=== PATIENT | male | born 1995 | race American Indian/Alaskan Native ===

== ENCOUNTER 2018-11-03 16:00 | Emergency (ER) | payer OTHER ==
--- NOTE | 2018-11-03 16:05 | Event Note ---
ED Screening Note Date of service: 11/03/18 Time: 16:02 ED Screening Note: 23 y o male presenst with left hend smash injury into door lac to 3rd and 4th digit This initial assessment/diagnostic orders/clinical plan/treatment(s) is/are subject to change based on patients health status, clinical progression and re- assessment by fellow clinical providers in the ED. Further treatment and workup at subsequent clinical providers discretion. Patient/guardian urged not to elope from the ED as their condition may be serious if not clinically assessed and managed. Initial orders include: xr fingers
--- NOTE | 2018-11-03 16:36 | XRay Report ---
LEFT HAND 4 VIEW INDICATION / CLINICAL INFORMATION: pain. COMPARISON: None available. FINDINGS: Comminuted fractures of the distal phalanges of the middle and ring fingers. Signer Name: Eddie Perez MD Signed: 11/03/2018 4:31 PM Workstation Name: [id number]
[2018-11-03] MEDS ORDERED: BOOSTRIX IM ONE (16:49)
[2018-11-03] MEDS ORDERED: PERCOCET 5/325 PO ONE (16:49)
[2018-11-03] MEDS ORDERED: XYLOCAINE 1% MPF 5 mL INFILTRATI ONE (16:57)
[2018-11-03] MEDS ORDERED: MARCAINE 0.25% INFILTRATI ONE ×2 (16:57→18:00)
--- NOTE | 2018-11-03 18:42 | Emergency Department Report ---
ED General Adult HPI - General Chief complaint: Extremity Injury, Upper Stated complaint: LFT FINGER TRAUMA/PAIN Time Seen by Provider: 11/03/18 16:02 Source: patient Mode of arrival: Ambulatory Limitations: No Limitations - History of Present Illness Initial comments: Patient is a 23-year-old male presents to the emergency room after slamming his left middle and ring finger and the door that occurred approximately 1-1/2 hours prior to arrival. Patient states he slammed a heavy wooden door. He is unsure of his last tetanus immunization. Patient also has lacerations present to the left middle and ring finger. He denies any previous injury of the fingers. he denies any numbness or weakness. the patient denies any PMHx or allergies to meds. Severity scale (0 -10): 10 - Related Data Previous Rx's Medication Instructions Recorded Last Taken Type Acetaminophen/Codeine [Tylenol 1 tab PO Q6H PRN #12 tab 11/03/18 Unknown Rx /Codeine # 3 tab] Ibuprofen [Motrin 600 MG tab] 600 mg PO Q8H PRN #14 tablet 11/03/18 Unknown Rx cephALEXin [Keflex] 500 mg PO QID 7 Days #56 capsule 11/03/18 Unknown Rx Allergies Allergy/AdvReac Type Severity Reaction Status Date / Time No Known Allergies Allergy Unverified 11/03/18 16:03 ED Review of Systems ROS: Stated complaint: LFT FINGER TRAUMA/PAIN Other details as noted in HPI Comment: All other systems reviewed and negative ED Past Medical Hx - Past Medical History Previous Medical History?: No - Surgical History Past Surgical History?: Yes Additional Surgical History: ACL repair - Social History Smoking Status: Never Smoker - Medications Home Medications: Home Medications Medication Instructions Recorded Confirmed Last Taken Type Acetaminophen/Codeine [Tylenol 1 tab PO Q6H PRN #12 tab 11/03/18 Unknown Rx /Codeine # 3 tab] Ibuprofen [Motrin 600 MG tab] 600 mg PO Q8H PRN #14 tablet 11/03/18 Unknown Rx cephALEXin [Keflex] 500 mg PO QID 7 Days #56 capsule 11/03/18 Unknown Rx ED Physical Exam - General Limitations: No Limitations General appearance: alert, in no apparent distress - Head Head exam: Present: atraumatic, normocephalic - Eye Eye exam: Present: normal appearance - ENT ENT exam: Present: mucous membranes moist - Neurological Exam Neurological exam: Present: alert, oriented X3 - Psychiatric Psychiatric exam: Present: normal affect, normal mood - Skin Skin exam: Present: warm, dry, other (2 cm laceration to the palmar surface of the left ring finger, appears superficial, no tendon invovlement, avulsion present to the left middle finger adjacent to the nail bed, left middle finger nail avulsion and is partially from the nail bed, small puncture wound to the left ring finger on the palmar side ) ED Course Vital Signs 11/03/18 11/03/18 11/03/18 16:03 17:23 19:33 Temperature 98.5 F Pulse Rate 79 80 Respiratory 16 17 16 Rate Blood Pressure 139/82 Blood Pressure 140/84 [Right] O2 Sat by Pulse 98 99 Oximetry - Laceration /Wound Repair Left Finger Wound Location: upper extremity (left palmar surface of the ring finger, and the left middle finger nail) Wound Length (cm): 2 Wound's Depth, Shape: superficial, nail-avulsed Wound Explored: clean Irrigated w/ Saline (ccs): 30 Betadine Prep?: Yes Anesthesia: 1% Lidocaine (50/50 mixture of 1% lidocaine without epi and 0.25% of bupivacaine) Volume Anesthetic (ccs): 4 Wound Repaired With: sutures Suture Size/Type: 4:0, proline Number of Sutures: 4 Layer Closure?: No Sterile Dressing Applied?: Yes Progress: area irrigated with saline/betadine mixture then prepped with betadine, no foreign body visualized, no tendon involvement, sterile dressing applied, 50/50 mixture of 1% lidocaine without epi and 0.25 % bupivacaine, digital block performed to the left middle finger and left ring finger with 2 cc of anesthetic mixture, 2 cm laceration present to the palmar surface of the left ring finger repaired with 3 sutures of 4-0 prolene, nail avulsion to the left middle finger, small hole placed with electrocautery and nail placed back in the nail bed and one suture placed to hold in place with 4-0 prolene, skin avulsion unable to be repaired due to the edges being too far apart and would not hold suture, pt received 4 total sutures, pt tolerated well, bleeding controlled, no complications ED Medical Decision Making - Radiology Data Radiology results: report reviewed LEFT HAND 4 VIEW INDICATION / CLINICAL INFORMATION: pain. COMPARISON: None available. FINDINGS: Comminuted fractures of the distal phalanges of the middle and ring fingers. Signer Name: Eddie Perez MD Signed: 11/03/2018 4:31 PM Workstation Name: [id number] Transcribed By: TM Dictated By: Eddie Perez MD Electronically Authenticated By: Eddie Perez MD Signed Date/Time: 11/03/18 5131 - Medical Decision Making Patient is a 23-year-old male presents to the emergency room after slamming his left middle and ring finger and the door that occurred approximately 1-1/2 hours prior to arrival. Patient states he slammed a heavy wooden door. He is unsure of his last tetanus immunization. Patient also has lacerations present to the left middle and ring finger. He denies any previous injury of the fingers. he denies any numbness or weakness. the patient denies any PMHx or allergies to meds. VSS. on exam: 2 cm laceration to the palmar surface of the left ring finger, appears superficial, no tendon invovlement, avulsion present to the left middle finger adjacent to the nail bed, left middle finger nail avulsion and is partially from the nail bed, small puncture wound to the left ring finger on the palmar side. XR left hand shows: Comminuted fractures of the distal phalanges of the middle and ring fingers. all wounds thoroughly irrigated with saline and betadine. pt given tetanus immunization. digital block performed on the left ring finger and middle finger, laceration repaired on the left ring finger due to being superficial, nail avulsion placed back in nail bed and sutured to the finger skin, unable to repair avulsion, puncture wound could represent open fracture. repairs per procedure note. pt placed on abx due to potential for open fx. pt fingers ulises taped and sterile dressing applied. advised pt to please take medication as prescribed. do not drive or operate heavy machinery while taking pain medication. Please keep areas clean and dry. No hot tub, pool, soaking in water. sutures will need to be removed in 7-10 days, may return to the emergency room or be seen by urgent care/primary care. Follow up with an orthopedic doctor in the next 2 days due to finger fractures. Return to the emergency room for any new or worsening symptoms. Critical care attestation.: If time is entered above; I have spent that time in minutes in the direct care of this critically ill patient, excluding procedure time. ED Disposition Clinical Impression: Fracture of distal phalanx of finger of left hand, Laceration, Skin avulsion, Nail avulsion Disposition: - TO HOME OR SELFCARE Is pt being admited?: No Does the pt Need Aspirin: No Condition: Stable Instructions: Suture Care (ED), Laceration (ED), Finger Fracture (ED) Additional Instructions: Please take medication as prescribed. do not drive or operate heavy machinery while taking pain medication. Please keep areas clean and dry. No hot tub, pool, soaking in water. sutures will need to be removed in 7-10 days, may return to the emergency room or be seen by urgent care/primary care. Follow up with an orthopedic doctor in the next 2 days due to finger fractures. Return to the emergency room for any new or worsening symptoms. Prescriptions: cephALEXin [Keflex] 500 mg PO QID 7 Days #56 capsule Ibuprofen [Motrin 600 MG tab] 600 mg PO Q8H PRN #14 tablet PRN Reason: Pain Acetaminophen/Codeine [Tylenol /Codeine # 3 tab] 1 tab PO Q6H PRN #12 tab PRN Reason: Pain , Severe (7-10) Referrals: [facility] [Provider Group] - 2-3 Days CIRO GREWAL MD [Staff Physician] - 2-3 Days Time of Disposition: 18:47 Print Language: ROMANSH
[2018-11-03 19:34] VITALS: BP 140/84
== END 2018-11-03 19:33 | disposition home or self-care (01) ==
LOC: ED 16:00
DX: S62.635A Displaced fracture of distal phalanx of left ring finger, initial encounter for closed fracture (principal); S62.633A Displaced fracture of distal phalanx of left middle finger, initial encounter for closed fracture; S61.313A Laceration without foreign body of left middle finger with damage to nail, initial encounter; S61.315A Laceration without foreign body of left ring finger with damage to nail, initial encounter; Z98.890 Other specified postprocedural states; Z79.899 Other long term (current) drug therapy; W23.0XXA Caught, crushed, jammed, or pinched between moving objects, initial encounter; Y93.89 Activity, other specified; Y92.89 Other specified places as the place of occurrence of the external cause; Y99.8 Other external cause status
CPT/HCPCS: 90471; 90715; 99283